=== PATIENT | male | born 1950 | race Caucasian/White ===

== ENCOUNTER → 2017-11-05 08:50 | Outpatient (CLI) | payer OTHER, SELFPAY ==
--- NOTE | 2017-11-05 08:53 | XR_ITS ---
XR foot wt bearing RT 3V HISTORY: Right foot pain, heel pain ITS.REASON: pain ORDERING PHYSICIAN: Traci Morales DPM PATIENT AGE: 66 years COMPARISON: None FINDINGS: There is mild hallux valgus with osteoarthritis of the first MTP joint and mild hypertrophic change of the distal aspect of the first metatarsal. Flexion deformity involves the second through fifth toes. Osteophyte formation noted along the dorsal distal aspect of the first metatarsal. The calcaneus has an unremarkable appearance. No evidence of pes planus. IMPRESSION: Hallux valgus with bunion formation and osteoarthritis of the first MTP joint with posterior spurring of the distal aspect of the first metatarsal
--- NOTE | 2017-11-05 08:53 | XR_ITS ---
XR foot wt bearing LT 3V HISTORY: Left heel pain ITS.REASON: pain ORDERING PHYSICIAN: Traci Morales DPM PATIENT AGE: 66 years COMPARISON: None FINDINGS: Mild hallux valgus with mild osteoarthritic change of the first metatarsophalangeal joint with hypertrophic change of the distal aspect of the first metatarsal. No evidence of pes planus. There is a small calcaneal spur at 5 mm. IMPRESSION: Mild hallux valgus with osteoarthritis of the first metatarsophalangeal joint and bunion formation Small calcaneal spur
== END ==
PROVIDERS: PCP Family Medicine; Visit Provider Podiatrist
DX: M79.673 Pain in unspecified foot (principal)
CPT/HCPCS: 73630

== ENCOUNTER → 2018-02-11 10:47 | Outpatient (CLI) | payer MEDICARE, OTHER, SELFPAY ==
--- NOTE | 2018-02-11 10:58 | XR_ITS ---
XR chest 2V HISTORY: ITS.REASON: URI, COUGH, TOBACCO USE ORDERING PHYSICIAN: Leticia Miles PATIENT AGE: 67 years COMPARISON: None FINDINGS: The cardiomediastinal silhouette and pulmonary vascularity are within normal limits. The lungs are clear without infiltrates, suspicious nodules, or pleural effusions. No acute bony abnormalities. There may be an old left seventh rib fracture IMPRESSION: No acute finding
== END ==
PROVIDERS: PCP Nurse Practitioner Family; Visit Provider Nurse Practitioner Family
DX: J06.9 Acute upper respiratory infection, unspecified (principal); R05 Cough; Z72.0 Tobacco use
CPT/HCPCS: 71046

== ENCOUNTER → 2018-03-28 13:34 | Outpatient (CLI) | payer MEDICARE, OTHER, SELFPAY ==
--- NOTE | 2018-03-28 13:42 | CT_ITS ---
CT lung screening EXAM: CT LUNG LOW DOSE WO CONTRAST HISTORY: ITS.REASON: H/O NICOTINE DEPENDENCE,COUGH,SOB ORDERING PHYSICIAN: Vladimir Waters MD PATIENT AGE: 67 years COMPARISON: None TECHNIQUE: The exam was performed on a GE Light Speed [address] scanner using 2.90 mGy CTDI. A low dose helical CT CHEST was performed on a multi-detector scanner. All CT scans at the facility use one or more dose reduction, viz: automated exposure control, ma/kV adjustment per patient size (including targeted exams where dose is matched to indication, i.e. head), or iterative reconstruction technique. The LDCT was performed in a facility that meets the criteria for the screening program. Data regarding this exam was submitted to ACR which is an approved registry. The order for this exam indicates that it came as a result of a lung cancer screening counseling shard decision-making visit that included all the elements required of such a visit including smoking cessation. The radiologist interpreting this exam meets the CMS criteria for the LDCT lung cancer screening program. The exam is reported using the Lung-RADS classification scale and reported to the ACR registry. NOTE: This study was performed for the specific purposes of lung cancer screening and is not an alternative to diagnostic chest CT. RADIATION DOSE: CTDI vol(CT dose Index-volume) = 2.90mG DLP (Dose Length Product) = 104.61 mGcm FINDINGS: Indeterminate or Suspicious Lung Nodules(Category3-4B): None Indeterminate/Non-actionable Nodules(Category2): None Benign nodules(Category1)None LUNG PARENCHYMA Emphysema: Mild centrilobular emphysematous changes Airways disease: Hyperinflation with mild bronchial thickening consistent with obstructive chronic bronchitis Fibrosis: Mild fibrotic change in the lung bases OTHER ANATOMIC REGIONS Lymph Nodes: No enlarged lymph nodes evident. Scattered small nodes are present in the mediastinum and chantell Pleura: Unremarkable Cardiac: Coronary artery calcification OTHER FINDINGS: No other pertinent findings evident IMPRESSION: 1. Lung RADS Category: 1, negative 2. Other findings: COPD/emphysema with coronary artery disease RECOMMENDATIONS: 12 month LDCT follow-up
[2018-03-28 14:55] VITALS: PULSE 64; PULSE 68
== END ==
PROVIDERS: PCP Family Medicine; Visit Provider Family Medicine
DX: Z12.2 Encounter for screening for malignant neoplasm of respiratory organs (principal); Z87.891 Personal history of nicotine dependence; R05 Cough; R06.02 Shortness of breath
CPT/HCPCS: 94060; 94640

== ENCOUNTER → 2019-05-10 07:51 | Outpatient (CLI) | payer MEDICARE, OTHER, SELFPAY ==
--- NOTE | 2019-05-10 07:55 | CT_ITS ---
PROCEDURE: CT LUNG SCREENING CLINICAL INDICATION: HX TOBACCO USE Fifty pack-year smoking history, asymptomatic for lung cancer COMPARISON: LUNGSCREEN CT lung screening from 03/28/2018 TECHNIQUE: The exam was performed on a GE Light Speed [address] scanner using 2.90 mGy CTDI. A low dose helical CT CHEST was performed on a multi-detector scanner. All CT scans at the facility use one or more dose reduction, viz: automated exposure control, ma/kV adjustment per patient size (including targeted exams where dose is matched to indication, i.e. head), or iterative reconstruction technique. The LDCT was performed in a facility that meets the criteria for the screening program. Data regarding this exam was submitted to ACR which is an approved registry. The order for this exam indicates that it came as a result of a lung cancer screening counseling shard decision-making visit that included all the elements required of such a visit including smoking cessation. The radiologist interpreting this exam meets the CMS criteria for the LDCT lung cancer screening program. The exam is reported using the Lung-RADS classification scale and reported to the ACR registry. NOTE: This study was performed for the specific purposes of lung cancer screening and is not an alternative to diagnostic chest CT. RADIATION DOSE: CTDI vol(CT dose Index-volume) = 2.90mG DLP (Dose Length Product) = 103.94 mGcm FINDINGS: There are few small nodular opacities in the right upper lobe at 2-3 mm not significantly changed. No suspicious nodules are evident. There are changes of COPD. OTHER FINDINGS: Coronary artery calcifications IMPRESSION: Lung rads category 2 benign findings Recommend 12 month LDCT follow-up Dictated by: Cornel Joiner MD 05/13/2019 14:28 Electronically signed by Cornel Joiner MD in [place] 05/13/2019 14:28
--- NOTE | 2019-05-10 08:30 | US_ITS ---
PROCEDURE: US AORTA CLINICAL INDICATION: AAA SCREENING, HX TOBACCO USE COMPARISON: No exams were available for comparison FINDINGS: No evidence of abdominal aortic aneurysm. Proximal common iliacs have an unremarkable appearance. IMPRESSION: Negative for abdominal aortic aneurysm Dictated by: Cornel Joiner MD 05/10/2019 17:16 Electronically signed by Cornel Joiner MD in [place] 05/10/2019 17:16
== END ==
PROVIDERS: PCP Family Medicine; Visit Provider Family Medicine
DX: Z87.891 Personal history of nicotine dependence (principal); Z12.2 Encounter for screening for malignant neoplasm of respiratory organs; I71.4 Abdominal aortic aneurysm, without rupture
CPT/HCPCS: 76770

== ENCOUNTER 2020-03-01 19:41 | Emergency (ER) | payer MEDICARE, OTHER, SELFPAY ==
[2020-03-01 19:45] VITALS: BP 127/77; PULSE 89; RESP 14; TEMP 36.7; O2SAT 97; BMI 34.9
--- NOTE | 2020-03-01 19:52 | HMH.EDUTC ---
[facility] [place]: Laceration of hand Qualifiers: Encounter type: initial encounter Foreign body presence: without foreign body Laterality: left Qualified Code(s): S61.412A - Laceration without foreign body of left hand, initial encounter Disposition: Home, Self-Care Condition on Discharge: Good Instructions: DI for Laceration Repair -- Simple Additional Instructions: Keep clean and dry. Have sutures removed in 7-10 days. Referrals: Vladimir Waters MD [Primary Care Provider] - Time of Disposition: 20:26 Medical Decision Making - Oswaldo Inquiry Pt receiving controlled substance: No Vital Signs: 03/01/20 19:45 Temperature 98.0 F Temperature Source Oral Pulse Rate [Right Brachial] 89 Respiratory Rate 14 Blood Pressure [Right Arm] 127/77 Blood Pressure Mean [Right Arm] 93 Blood Pressure Source [Right Arm] Automatic Cuff Blood Pressure Position [Right Arm] Sitting 02 Sat by Pulse Oximetry 97 Oxygen Delivery Method Room Air [facility] [place] - General Stated complaint: ao 03/01@1915 lac l hand middle finger Time Seen by Provider: 03/01/20 19:53 - History of Present Illness Provider Complaint: 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 Unknown last tetanus. Onset (ago): hour(s) (1) Location: left, upper extremity Relieving factors: none Exacerbating factors: none Associated symptoms: denies other symptoms Treatments prior to arrival: none - Related Data Home Medications Medication Instructions Recorded Confirmed Fenofibrate Nanocrystallized 145 mg PO DAILY 06/23/17 02/15/18 [Fenofibrate] Simvastatin 20 mg PO DAILY 06/23/17 02/15/18 Valsartan/Hydrochlorothiazide 1 each PO DAILY 06/23/17 02/15/18 [Valsartan-Hctz 320-12.5 mg Tab] albuterol sulfate 90 mcg/actuation INHALATION 25 Days #18 g 02/15/18 02/15/18 aerosol inhaler Previous Rx's Medication Instructions Recorded meloxicam 7.5 mg tablet 7.5 mg PO ONCE #30 tab 11/09/17 urea 40 % topical cream 1 applic TOPICAL BID #60 applic 11/09/17 Allergies Allergy/AdvReac Type Severity Reaction Status Date / Time No Known Allergies Allergy Verified 02/15/18 09:35 [facility] History - Hepatitis A Screen Attestation statement:: This patient has been screened for Hepatitis A risk factors. I have reviewed the patient's past medical history: Yes Medical History: Reports:: Hyperlipidemia, Hypertension Denies:: Cancer, Diabetes Mellitus Type 1, Diabetes Mellitus Type 2, Internal Pacemaker, MRSA, Seizures Other Medical History: Reports: Other. Denies: Blood Transfusion Reaction Laterality Cases: Bilateral: Tonsillectomy Other Surgeries: Yes: Colonoscopy, Other (lesion removal). No: Pacemaker Amputation: No Comment: Detached Retina - Social History Smoking Status: Former smoker Tobacco Type: cigarettes Alcohol Intake: current Alcohol Intake Frequency:: 3 or more drinks per day Substance Use Type: denies use Occupational Status: unemployed Housing: house Household Members: spouse Family Hx:: Cancer, Heart Attack, Hyperlipidemia, Hypertension ROS Obtained: Yes All systems reviewed & no additional complaints - Integumentary/Breasts Skin/Breast: Reports as per HPI Physical Exam - General General appearance: alert, in no apparent distress - Head Head exam: normocephalic - Respiratory Respiratory exam: Present: normal lung sounds bilaterally - Cardiovascular Cardiovascular exam: Present: regular rate, normal rhythm - Expanded Upper Extremity Exam Left Hand exam: Present: laceration - Neurological Exam Neurological exam: Present: alert, oriented X3 - Psychiatric Psychiatric exam: Present: normal affect, normal mood - Skin Skin exam: Present: warm, dry, other (laceration left middle finger, palmar tip) Procedures - Laceration Laceration 1 Site: finger Side (If applicable): left Size (cm): 1.0 Description: linear Depth: simple, single layer Local Anesthetic: lidocaine 1% Am
--- NOTE | 2020-03-01 20:25 | PC.NURSE ---
TDAP GIVEN AT THIS TIME IN LEFT DELTOID. LOT #[id number] EXP. 11/30/21
[2020-03-01 20:32] VITALS: BP 127/77; PULSE 89; RESP 14; TEMP 36.7; O2SAT 97
== END 2020-03-01 20:35 | disposition home or self-care (01) ==
PROVIDERS: Emergency Provider Physician Assistant; PCP Family Medicine
DX: S61.213A Laceration without foreign body of left middle finger without damage to nail, initial encounter (principal); W29.1XXA Contact with electric knife, initial encounter; Y92.019 Unspecified place in single-family (private) house as the place of occurrence of the external cause; E78.5 Hyperlipidemia, unspecified; I10 Essential (primary) hypertension; Z23 Encounter for immunization; Z87.891 Personal history of nicotine dependence; Z79.899 Other long term (current) drug therapy
CPT/HCPCS: 12001; G0463; 90471; 99201

== ENCOUNTER → 2021-02-03 08:41 | Outpatient (CLI) | payer MEDICARE, OTHER, SELFPAY | PROVIDERS: PCP Family Medicine; Visit Provider Nurse Practitioner | DX: U07.1 COVID-19 (principal) | CPT/HCPCS: C9803; U0003; U0005 ==

== ENCOUNTER → 2022-12-01 13:09 | Outpatient (POV) | payer MEDICARE, OTHER, SELFPAY | PROVIDERS: Visit Provider Dermatology | DX: Z00.00 Encounter for general adult medical examination without abnormal findings (principal) ==

== ENCOUNTER 2023-12-09 07:20 | Outpatient (CLI) | payer MEDICARE, OTHER, SELFPAY ==
--- NOTE | 2023-12-09 07:27 | CT_ITS ---
FINAL REPORT CLINICAL HISTORY: SCREENING FORMER SMOKER QUIT 8 YEARS AGO SMOKED 2 PPD X 50 YEARS COMPARISON: 05/10/2019 FINDINGS: CTDI vol (mGy): 2.90 DLP: 106.[address] images of the chest were obtained using the low-dose protocol for screening. There is no evidence of mediastinal or hilar mass or adenopathy. No axillary mass or adenopathy is identified. On the lung window images, there are a few tiny nodules in the upper lobes, stable from prior exam consistent with granulomas. No suspicious mass or nodule is identified. IMPRESSION: Lung RADS category 2. Recommend 12 month followup low-dose CT for further evaluation. Reviewed, Interpreted and Dictated by Leonard Tyler MD Transcribed by Celestina Whyte Authenticated and [facility]
== END 2023-12-09 23:59 | disposition home or self-care (01) ==
LOC: RAD 07:21
PROVIDERS: PCP Family Medicine; Visit Provider Family Medicine
DX: Z87.891 Personal history of nicotine dependence (principal); Z12.2 Encounter for screening for malignant neoplasm of respiratory organs
CPT/HCPCS: 71271

== ENCOUNTER 2025-01-12 10:56 | Outpatient (CLI) | payer MEDICARE, OTHER, SELFPAY ==
--- OUTSIDE RECORDS SUMMARY | 2024-12-25 09:00 | XMS_ITS | Encounter Summary ---
Author Organization [facility] Address [address] [place] [address] Care Team Providers Care Mechanical Door Repairer Name Role Phone Vladimir Waters MD Primary Care Provider + Reason for Referral * MRI/CAT/PET Scan (Routine) - Authorized Specialty Diagnoses / Procedures Referred By Contac t Referred To Contact Diagnoses Personal history of nicotine dependence Procedures CT Chest Low Dose Baseline/Annual Screening WO Vladimir Waters MD [address] [facility] [place] [address] Phone: tel: fax: [facility] [address] [place] [address] [place] [address] Phone: tel: fax: Referral ID Status Reason Start Date Expiration Date V isits Requested Visits Authorized [id number] Authorized 12/25/2024 03/26/2026 1 1 Reason for Visit * Reason Comments Diabetes Encounter Details Date Type Department Care Team (Late Contact Info) Description 12/25/2024 9:00 AM EDT Office Visit [facility] [address] [facility] [place] [address] Vladimir Waters MD [address] [facility] [place] [address] Type 2 diabetes mellitus without complication, without long-term current use of insulin (Primary Dx); Essential hypertension; Personal history of nicotine dependence; Need for immunization against influenza; Obstructive sleep apnea Social History Tobacco Use Types Packs/Day Years Used Date Smoking Tobacco: Former Cigarettes 1 50 1 - 02/29/2016 Smokeless Tobacco: Never Tobacco Cessation:Counseling Given: Not Answered Alcohol Use Standard Drinks/Week Comments Yes 3 (1 standard drink = 0.6 oz pur e alcohol) PHQ-2 Answer Date Recorded Retired PHQ-9: Brief Depression Severity Measure Score 0 05/11/2022 PHQ-2 Answer Date Recorded Patient Health Questionnaire-2 Score 0 05/15/2024 Sex and Gender Information Value Date Recorded Sex Assigned at Male 05/08/2024 6:04 PM EST Legal Sex Male 1:47 PM EDT Gender Identity Not on file Sexual Orientation Not on file documented as of this encounter Last Filed Vital Signs Vital Sign Reading Time Taken Comments Blood Pressure 130/70 12/25/2024 8:56 AM EDT Pulse 70 12/25/2024 8:56 AM EDT Temperature 36.4 C (97.5 F) 12/25/2024 8:56 AM EDT Respiratory Rate 20 12/25/2024 8:56 AM EDT Oxygen Saturation 98% 12/25/2024 8:56 AM EDT Inhaled Oxygen Concentration - - Weight 109 kg (240 lb) 12/25/2024 8:56 AM EDT Height - - Body Mass Index 37.03 05/15/2024 7:59 AM EST documented in this encounter Progress Notes * Vladimir Waters MD - 12/25/2024 9:00 AM EDT Chief Complaint Patient presents with Diabetes Subjective Prieto Barker is a 74 y.o. who presents for chronic care. Weight is down 12 pounds. He has reduced consumption of cookies, ice cream, alcohol in an effort to improve his blood sugar. Blood pressure is not monitored. Patient is due for lung cancer screening. He continues CPAP for SANJAY and supplies wererecently refilled. Answers submitted by the patient for this visit: Office Visit on 12/25/2024 9:00 AM with Vladimir Waters Diabetes Questionnaire (Submitted on 12/18/2024) Chief Complaint: Diabetes problem Diabetes type: type 1 MedicAlert ID: No foot paresthesias: No foot ulcerations: No headaches: No sweats: No Current diet: generally healthy Meal planning: none Exercise: intermittently Eye exam current: Yes Sees sales administration manager: No The following portions of the patient's history were reviewed and updated as appropriate: allergies, current medications, past family history, past medical history, past social history, past surgicalhistory, and problem list. Review of Systems Objective Vital Signs: BP 130/70 Pulse 70 Temp 97.5 ??F (36.4 ??C) Resp 20 Wt 109 kg (240 lb) SpO2 98% BMI 37.03 kg/m?? Physical Exam Vitals reviewed. Constitutional: Appearance: Normal appearance. Cardiovascular: Rate and Rhythm: Normal rate and regular rhythm. Pulses: Normal pulses. Heart sounds: Normal heart sounds. Pulmonary: Effort: Pulmonary effort is normal. Breath sounds: Normal breath sounds. Neurological: Mental Status: He is alert. Result Review The following data was reviewed by: Vladimir Waters MD on 12/25/2024: Lab 12/25/24 0906 HEMOGLOBIN A1C 6.3* Assessment and Plan Diagnoses and all orders for this visit: 1. Type 2 diabetes mellitus without complication, without long-term current use of insulin (Primary) Comments: Diabetes is now controlled. Continue metformin 500 mg twice daily. Reassess in 5 to 6 months Orders: - POC Glycosylated Hemoglobin (Hb A1C) - metFORMIN (GLUCOPHAGE) 500 MG tablet; Take 1 tablet by mouth 2 (Two) Times a Day With Meals. Dispense: 180 tablet; Refill: 1 2. Essential hypertension Comments: Pretension is controlled. Continue losartan, HCTZ. Combine med at next visit 3. Personal history of nicotine dependence Comments: Continue with LDCT annually Orders: - CT Chest Low Dose Baseline/Annual Screening WO; Future 4. Need for immunization against influenza - Fluzone High-Dose 65+yrs ([id number]) 5. Obstructive sleep apnea Comments: Stable. CPAP supplies refilled last week Follow Up Return in about 5 months (around 05/25/2025) for Medicare Wellness. Patient was given instructions and counseling regarding his condition or for health maintenance advice. Please see specific information pulled into the AVS if appropriate. documented in this encounter Plan of Treatment Upcoming Encounters Date Type Department Care Team (Late st Contact Info) Description 05/21/2025 9:15 AM EDT Office Visit [facility] [address] [place] [address] Vladimir Waters MD [address] [place] [address] Scheduled Orders Name Type Priority Associated Diagnoses Orde r Schedule CT Chest Low Dose Baseline/Annual Screening WO Imaging Routine Personal history of nicotine dependence Expected: 12/26/2024, Expires: 03/27/2026 documented as of this encounter Procedures Procedure Name Priority Date/Time Associated Diagnosis Comments POCT GLYCOSYLATED HEMOGLOBIN (HGB A1C) Routine 12/25/2024 9:06 AM EDT Type 2 diabetes mellitus without complication, without long-term current use of insulin documented in this encounter Results * (ABNORMAL) POC Glycosylated Hemoglobin (Hb A1C) (12/25/2024 9:06 AM EDT) Hemoglobin A1C 6.3(A) 4.5 - 5.7 % [facility] Lot Number [id number] [facility] Expiration Date 07/06/2026 [facility] Blood 12/25/2024 9:06 AM EDT us Vladimir Waters MD POINT OF CARE TEST ORDER VALERY Final Result [facility]
[address] [place] [address], documented in this encounter Visit Diagnoses Diagnosis Type 2 diabetes mellitus without complication, without long-term current use of insulin- Primary Essential hypertension Unspecified essential hypertension Personal history of nicotine dependence Need for immunization against influenza Need for prophylactic vaccination and inoculation against influenza Obstructive sleep apnea Obstructive sleep apnea (adult) (pediatric) documented in this encounter Care Teams Mechanical Door Repairer Relationship Specialty Start Date End Date Vladimir Waters MD [address] [facility] [place] [address] PCP - General Family Medicine 08/04/21 documented as of this encounter
--- NOTE | 2025-01-12 10:59 | CT_ITS ---
FINAL REPORT TECHNIQUE: Axial images were obtained from the lung apex to the mid abdomen by computed tomography. This study was performed with techniques to keep radiation doses as low as reasonably achievable (ALARA). Individualized dose reduction techniques using automated exposure control or adjustment of mA and/or kV according to the patient's size were employed. CLINICAL HISTORY: SCREENING former smoker quit 9 years ago, 2ppd x50 years FINDINGS: CHEST CT LOW DOSE CTDI vol (mGy): 2.90 DLP (mGy-cm): 99.25 There is no axillary adenopathy. There is no hilar or mediastinal adenopathy. The heart is normal in size. There is no pericardial or pleural effusion. Lung window images demonstrate no suspicious infiltrate or nodule. Limited images of the upper abdomen are unremarkable. IMPRESSION: Lung RADS category 1. Recommend 12 month follow-up low-dose chest CT. Reviewed, Interpreted and Dictated by Twin Barrera MD Transcribed by Justina Pierce Authenticated and . [facility]
--- OUTSIDE RECORDS SUMMARY | 2025-01-12 11:04 | XMS_ITS | Encounter Summary ---
[facility] Address [address] [place] [address] Care Team Providers Care Manufacturing Production Technician Name Role Phone Vladimir Waters MD Primary Care Provider + Reason for Visit * Reason Onset Date Comments Med Refill 04/29/2022 Encounter Details Date Type Department Care Team (Late st Contact Info) Description 04/29/2022 Refill [facility] [address] [place] [address] Vladimir Waters MD [address] [facility] [address] Social History Tobacco Use Types Packs/Day Years Used Date Smoking Tobacco: Former Cigarettes Q uit: 2017 Smokeless Tobacco: Never PHQ-2 Answer Date Recorded Retired PHQ-9: Brief Depression Severity Measure Score 0 08/04/2021 Sex and Gender Information Value Date Recorded Sex Assigned at Male 05/08/2024 6:04 PM EST Legal Sex Male 1:47 PM EDT Gender Identity Not on file Sexual Orientation Not on file documented as of this encounter Plan of Treatment Upcoming Encounters Date Type Department Care Team (Late Contact Info) Description 05/21/2025 9:15 AM EDT Office Visit [facility] [address] [place] [address] Vladimir Waters MD [address] [place] [address] documented as of this encounter Visit Diagnoses Not on filedocumented in this encounter Care Teams Manufacturing Production Technician Relationship Specialty Start Date End Date Vladimir Waters MD [address] [place] [address] PCP - General Family Medicine 08/04/21 documented as of this encounter
--- OUTSIDE RECORDS SUMMARY | 2025-01-12 11:04 | XMS_ITS | Encounter Summary ---
Author Organization [facility] Address [address] [place] [address] Care Team Providers Care Employee Representative Name Role Phone Vladimir Waters MD Primary Care Provider + Encounter Details Date Type Department Care Team (Latest Contact Info) Description 12/25/2024 Travel Social History Tobacco Use Types Packs/Day Years Used Date Smoking Tobacco: Former Cigarettes 1 50 1 - 02/29/2016 Smokeless Tobacco: Never Alcohol Use Standard Drinks/Week Comments Yes 3 [...] Description 05/21/2025 9:15 AM EDT Office Visit [facility] [address] [facility] [address] Vladimir Waters MD [address] [place] [address] documented as of this encounter Visit Diagnoses Not on filedocumented in this encounter Care Teams Employee Representative Relationship Specialty Start Date End Date Vladimir Waters MD [address] [place] [address] PCP - General Family Medicine 08/04/21 documented as of this encounter
--- OUTSIDE RECORDS SUMMARY | 2025-01-12 11:04 | XMS_ITS | Clinical Summary ---
Author Organization [facility] Address [address] [place] [address] Care Team Providers Care Developmental Education Instructor Name Role Phone Vladimir Waters MD Primary Care Provider + Allergies No known active allergies Medications gemfibrozil (LOPID) 600 MG tabletIndications: Mixed hyperlipidemia Take 1 tablet by mouth 2 (Two) Times a Day. 180 tablet 3 05/16/19 25 Active hydroCHLOROthiazid e 25 MG tabletIndications: Essential hypertension Take 1 tablet by mouth Daily. 90 tablet 3 05/16/19 25 Active losartan (COZAAR) 100 MG tabletIndications: Essential hypertension Take 1 tablet by mouth Daily. 90 tablet 3 05/16/19 25 Active simvastatin (ZOCOR) 20 MG tabletIndications: Mixed hyperlipidemia Take 1 tablet by mouth Every Evening. 90 tablet 3 05/16/19 25 Active metFORMIN (GLUCOPHAGE) 500 MG tabletIndications: Type 2 diabetes mellitus without complication, without long-term current use of insulin Take 1 tablet by mouth 2 (Two) Times a Day With Meals. 180 tablet 1 12/26/19 25 Active dapagliflozin Propanediol 10 MG tabletIndications: Type 2 diabetes mellitus with hyperglycemia, without long-term current use of insulin Take 10 mg by mouth Daily. 30 tablet 2 05/17/19 25 025 Discontinued metFORMIN (GLUCOPHAGE) 500 MG tabletIndications: Type 2 diabetes mellitus with hyperglycemia, without long-term current use of insulin Take 1 tablet by mouth 2 (Two) Times a Day With Meals. 180 tablet 12/12/19 25 025 Discontinued(Re order) Active Problems Problem Noted Date Diagnosed Date Type 2 diabetes mellitus with hyperglycemia 08/13 Essential hypertension 08/04/2021 Assessment & Plan (05/15/2024 8:29 AM EST): Orders: hydroCHLOROthiazide 25 MG tablet; Take 1 tablet by mouth Daily. losartan (COZAAR) 100 MG tablet; Take 1 tablet by mouth Daily. CBC & Differential Comprehensive Metabolic Panel Assessment & Plan (05/11/2022 12:49 PM EST): Hypertension is Stable. Continue current treatment regimen. Dietary sodium restriction. Blood pressure will be reassessed at the next regular appointment. Mixed hyperlipidemia 08/04/2021 Assessment & Plan (05/15/2024 8:29 AM EST): Orders: gemfibrozil (LOPID) 600 MG tablet; Take 1 tablet by mouth 2 (Two) Times a Day. simvastatin (ZOCOR) 20 MG tablet; Take 1 tablet by mouth Every Evening. Comprehensive Metabolic Panel Lipid Panel Assessment & Plan (05/11/2022 12:49 PM EST): Lipid abnormalities are improving with treatment. Pharmacotherapy as ordered. Lipids will be reassessed in 1 year. Obstructive sleep apnea 08/04/2021 Assessment & Plan (05/15/2024 8:29 AM EST): Assessment & Plan (05/11/2022 12:53 PM EST): Stable. Continue CPAP Class 2 severe obesity due t o excess calories with serious comorbidity and body mass index (BMI) of 36.0 to 36.9 in adult 08/04/2021 Encounters Date Type Department Care Team Description 12/25/2024 9:00 AM EDT Office Visit [facility] [address] [place] [address] Vladimir Waters MD Type 2 diabetes mellitus without complication, without long-term current use of insulin (Primary Dx); Essential hypertension; Personal history of nicotine dependence; Need for immunization against influenza; Obstructive sleep apnea 12/25/2024 Travel 12/10/2024 Refill [facility] [address] [place], [place] [address] Vladimir Waters MD Type 2 diabetes mellitus with hyperglycemia, without long-term current use of insulin 11/21/2024 Telephone [facility] [address] [place] [address] Vladimir Waters MD PAPERWORK REQUEST 10/24/2024 Refill [facility] [address] [place], [place] [address] Vladimir Wtaers MD Type 2 diabetes mellitus with hyperglycemia, without long-term current use of insulin from Last 3 Months Immunizations Immunization Administration Dates Next Due COVID-19 (MODERNA) 12YRS+ (SPIKEVAX) 12/11/2022 COVID-19 (MODERNA) 1st,2nd,3 rd Dose Monovalent 06/25/2021,01/29/2021,06/12/2020,2020 COVID-19 (MODERNA) BIVALENT 12+YRS 01/07/2022 COVID-19 (UNSPECIFIED) 01/27/2024 FLUAD TRI 65YR+ 12/29/2019 Fluzone High-Dose 65+YRS 12/25/2024,12/11/2022 Fluzone High-Dose 65+yrs 01/27/2024,11/05/2021 Shingrix 07/18/2024,05/15/2024 Family History Medical History Relation Name Comments No Known Problems Father Cancer Mother Sangeetha colon Relation Name Status Comments Father Mother Sangeetha Social History Tobacco Use Types Packs/Day Years [...] on file Sexual Orientation Not on file Last Filed Vital Signs Vital Sign Reading Time Taken Comments Blood Pressure 130/70 12/25/2024 8:56 AM EDT Pulse 70 12/25/2024 8:56 AM EDT Temperature 36.4 C (97.5 F) 12/25/2024 8:56 AM EDT Respiratory Rate 20 12/25/2024 8:56 AM EDT Oxygen Saturation 98% 12/25/2024 8:56 AM EDT Inhaled Oxygen Concentration - - Weight 109 kg (240 lb) 12/25/2024 8:56 AM EDT Height 171.5 cm (5' 7.5 ) 05/15/2024 7:59 AM EST Body Mass Index 37.03 05/15/2024 7:59 AM EST Plan of Treatment Upcoming Encounters Date Type Department Care Team (Late st Contact Info) Description 05/21/2025 9:15 AM EDT Office Visit [facility] [address] [facility] [place] [address] Vladimir Waters MD [address] [facility] [place] [address] Health Maintenance Due Date Last Done Comments DIABETIC FOOT EXAM 1962 URINE MICROALBUMIN-CREATININ E RATIO (uACR) 1962 Pneumococcal Vaccine 50+ (1 of 2 - PCV) 12/16/1971 TDAP/TD VACCINES (1 - Tdap) 12/16/1971 COLOGUARD 1997 COLON CANCER SCREENING 5 YEA R SIGMOIDOSCOPY 1997 CT COLONOGRAPHY 1997 FECAL OCCULT BLOOD TEST 1997 FIT Testing (1 year) 1997 HEPATITIS C SCREENING 08/04/2021 DIABETIC EYE EXAM 01/01/2022 01/01/2021, , 01/09/2019 COVID-19 Vaccine (8 - Modern a risk season) 2024 01/27/2024, 12/11/2022, 01/07/2022, Additional history exists LUNG CANCER SCREENING 12/08/2024 12/09/2023 ANNUAL WELLNESS VISIT 05/15/2025 05/15/2024 , 05/13/2023, 05/11/2022, Additional history exists LIPID PANEL 05/15/2025 05/15/2024, 04/16, 05/11/2022, Additional history exists HEMOGLOBIN A1C 06/25/2025 12/25/2024, 03/0 05/2024, 05/05/2021, Additional history exists COLONOSCOPY 08/06/2030 08/06/2020, 07/14, 08/06/2020 COLORECTAL CANCER SCREENING 08/06/2030 AAA SCREEN ONCE Completed 05/10/2019, 04/16, 02/26/2014 ZOSTER VACCINE Completed 07/18/2024, 05/15/2024 INFLUENZA VACCINE Completed 12/25/2024, , 01/27/2024, Additional history exists Procedures Procedure Name Priority Date/Time Associated Diagnosis Comments POCT GLYCOSYLATED HEMOGLOBIN (HGB A1C) Routine 12/25/2024 9:06 AM EDT Type 2 diabetes mellitus without complication, without long-term current use of insulin LIPID PANEL Routine 05/15/2024 8:32 AM EST Mixed hyperlipidemia CT CHEST LOW DOSE WO CANCER SCREENING Routine 12/09/2023 Screening for lung cancer Personal history of nicotine dependence SCANNED - COLONOSCOPY 08/06/2020 CT ABDOMEN PELVIS W CONTRAST Routine 02/26/2014 10:36 AM EST from Last 3 Months or Most Recently Relevant to Health Maintenance Results * (ABNORMAL) POC Glycosylated Hemoglobin (Hb A1C) (12/25/2024 9:06 AM EDT) Hemoglobin A1C 6.3(A) 4.5 - 5.7 % [facility] Lot Number [id number] [facility] Expiration Date 07/06/2026 [facility] Blood 12/25/2024 9:06 AM EDT Vladimir Waters MD POINT OF CARE TEST ORDER VALERY Final Result [facility]
[address] [place] [address], * (ABNORMAL) Lipid Panel (05/15/2024 8:32 AM EST) [facility] Total Cholesterol 156 0 - 200 mg/dL [facility] Comment: Cholesterol Reference Ranges (U.S. Department of Health and Human Services ATP III Classifications) Desirable <200 mg/dL Borderline High 200-239 mg/dL High Risk >240 mg/dL Triglyceride Reference Ranges (U.S. Department of Health and Human Services ATP III Classifications) Normal <150 mg/dL Borderline High 150-199 mg/dL High 200-499 mg/dL Very High >500 mg/dL HDL Reference Ranges (U.S. Department of Health and Human Services ATP III Classifications) Low <40 mg/dl (major risk factor for CHD) High >60 mg/dl ('negative' risk factor for CHD) LDL Reference Ranges (U.S. Department of Health and Human Services ATP III Classifications) Optimal <100 mg/dL Near Optimal 100-129 mg/dL Borderline High 130-159 mg/dL High 160-189 mg/dL Very High >189 mg/dL LDL is calculated using the NIH LDL-C calculation. Triglycerides 299(H) 0 - 150 mg/dL [facility] HDL Cholesterol 34(L) 40 - 60 mg/dL [facility] VLDL Cholesterol Nikita 48(H) 5 - 40 mg/dL [facility] LDL Chol Calc (NIH) 74 0 - 100 mg/dL [facility] Blood 05/15/2024 8:32 AM EST 05/15/2024 Narrative [facility]) - 05/16/2024 3:07 AM EST Performed at: 01 - [place] [address] [address] [place], [place] [id number] Snapper On: Jesse Ferrell MD, Phone: [phone] Patient Fasting: Y Vladimir Waters MD LAB BLOOD ORDERABLES Fin al Result [facility]) [address] [place] [address], [place] [phone] [facility] [address] [place] [address], [place] [phone] * CT Chest Low Dose Cancer Screening WO (12/09/2023) Anatomical Region Laterality Modality Chest Computed Tomogra phy us Vladimir Waters MD IMG CT ORDERABLES Final Result * SCANNED - COLONOSCOPY (08/06/2020) us Vladimir Waters MD CHART REVIEW TABS Fin al Result * CT ABDOMEN PELVIS WITH CONTRAST (02/26/2014 10:36 AM EST) Anatomical Region Laterality Modality Body N/A Computed Tomogra phy 02/26/2014 10:3 6 AM EST Narrative 02/26/2014 1:36 PM EST EXAMINATION: CT ABDOMEN AND PELVIS W CONTRAST- INDICATION: PRE OP, colon polyp, family history of malignancy of the colon TECHNIQUE: Creatinine 1.5, 90 mL of Optiray was administered for contrast enhancement. The radiation dose reduction device was turned on for each scan per the ALARA (As Low as Reasonably Achievable) protocol. COMPARISON: NONE FINDINGS: 1. Homogeneous fatty liver is noted. Focal mass is not identified within the liver otherwise. The spleen is unremarkable. The adrenal glands are normal. Pancreas is negative for mass, cyst or stranding. Gallbladder is negative for abnormal radiodensities. 2. A small 1 cm cyst projects from the right kidney. A 2 cm cyst is seen in the upper pole of the right kidney. Otherwise, solid renal mass, renal stone or renal obstruction is not currently identified. 3. Periaortic space, retroperitoneum and mesentery are unremarkable. There is no mesenteric or omental caking. There is diverticulosis of the colon without diverticulitis. The images into the lower abdomen and pelvis are negative for dominant mass or adenopathy. Prostate calculi are noted. IMPRESSION- 1. Homogeneous fatty liver. Minimal renal cysts. Prostatic calculi, postinflammatory. Diverticulosis of the colon without diverticulitis. 2. Otherwise, there is no evidence of visceral tumor, bulky adenopathy or active metastatic disease. E: 02/26/2014 Reading RadiologistTalia QUILES Releasing Samantha QUILES Released Date Time- 02/26/14 1537 Tutorial Laboratory Supervisor- Claudine Procedure Note Ned Pastor MD - 12/05/2014 EXAMINATION: CT ABDOMEN AND PELVIS W CONTRAST- INDICATION: PRE OP, colon polyp, family history of malignancy of the colon TECHNIQUE: Creatinine 1.5, 90 mL of Optiray was administered for contrast enhancement. The radiation dose reduction device was turned on for each scan per the ALARA (As Low as Reasonably Achievable) protocol. COMPARISON: NONE FINDINGS: 1. Homogeneous fatty liver is noted. Focal mass is not identified within the liver otherwise. The spleen is unremarkable. The adrenal glands are normal. Pancreas is negative for mass, cyst or stranding. Gallbladder is negative for abnormal radiodensities. 2. A small 1 cm cyst projects from the right kidney. A 2 cm cyst is seen in the upper pole of the right kidney. Otherwise, solid renal mass, renal stone or renal obstruction is not currently identified. 3. Periaortic space, retroperitoneum and mesentery are unremarkable. There is no mesenteric or omental caking. There is diverticulosis of the colon without diverticulitis. The images into the lower abdomen and pelvis are negative for dominant mass or adenopathy. Prostate calculi are noted. IMPRESSION- 1. Homogeneous fatty liver. Minimal renal cysts. Prostatic calculi, postinflammatory. Diverticulosis of the colon without diverticulitis. 2. Otherwise, there is no evidence of visceral tumor, bulky adenopathy or active metastatic disease. E: 02/26/2014 Reading Radiologist- NED QUILES Releasing Radiologist- NED QUILES Released Date Time- 02/26/14 1537 Tutorial Laboratory Supervisor- Claudine Reginald Zazueta MD IMG CT ORDERABLES Final Result from Last 3 Months or Most Recently Relevant to Health Maintenance Insurance [employer] MEDICARE A & B Care Teams Developmental Education Instructor Relationship Specialty Start Date End Date Vladimir Waters MD [facility] [address] PCP - General Family Medicine 08/04/21
--- OUTSIDE RECORDS SUMMARY | 2025-01-12 11:04 | XMS_ITS | Encounter Summary ---
[facility] Address [address] [place] [address] Care Team Providers Care Biofuels Product Manager Name Role Phone Vladimir Waters MD Primary Care Provider + Encounter Details Date Type Department Care Team (Late st Contact Info) Description 06/13/2024 Results Follow-Up [facility] [address] [facility] [place] [address] Ester Jackson LPN Social History Tobacco Use Types Packs/Day Years Used Date Smoking Tobacco: Former Cigarettes 1 50 1 - 02/29/2016 Smokeless Tobacco: Never Alcohol Use Standard Drinks/Week Comments Yes 2 (1 standard drink = 0.6 oz pur [...] Description 05/21/2025 9:15 AM EDT Office Visit [facility] [address] [place] [address] Vladimir Waters MD [address] [facility] [place] [address] documented as of this encounter Visit Diagnoses Not on filedocumented in this encounter Care Teams Biofuels Product Manager Relationship Specialty Start Date End Date Vladimir Waters MD [address] [place] [address] PCP - General Family Medicine 08/04/21 documented as of this encounter
--- OUTSIDE RECORDS SUMMARY | 2025-01-12 11:04 | XMS_ITS | Encounter Summary ---
[facility] Address [address] [place] [address] Care Team Providers Care Tobacco Drier Operator Name Role Phone Vladimir Waters MD Primary Care Provider + Reason for Visit * Reason Onset Date Comments PAPERWORK REQUEST 11/21/2024 Encounter Details Date Type Department Care Team (Late st Contact Info) Description 11/21/2024 Telephone [facility] [address] [place] [address] Vladimir aWters MD [address] [place] [address] PAPERWORK REQUEST Social History Tobacco Use Types Packs/Day Years [...] on file documented as of this encounter Miscellaneous Notes * Telephone Encounter - Lolly Kraus RegSched Rep - 11/21/2024 12:28 PM EDT NOTE HAS BEEN SENT * Telephone Encounter - Carlene Mcintosh RegSched Rep - 11/21/2024 10:59 AM EDT Caller: [facility] Relationship: Best call back number: [phone] What form or medical record are you requesting: MOST RECENT OFFICE NOTE Who is requesting this form or medical record from you: [facility] How would you like to receive the form or medical records (pick-up, mail, fax): FAX If fax, what is the fax number: [phone] Timeframe paperwork needed: MARCUS Additional notes: THEY ARE NEEDING THE MOST RECENT OFFICE NOTE FOR THIS PATIENT FOR HIS CPAP SUPPLIES. THEY RECEIVED THE ORDER THIS MORNING, BUT THE NOTES WERE NOT ATTACHED documented in this encounter Plan of Treatment Upcoming Encounters Date Type Department Care Team (Late st Contact Info) Description 05/21/2025 9:15 AM EDT Office Visit [facility] [address] [place] [phone] Vladimir Waters MD [address] [place] [address] documented as of this encounter Visit Diagnoses Not on filedocumented in this encounter Care Teams Tobacco Drier Operator Relationship Specialty Start Date End Date Vladimir Waters MD [address] [place] [address] PCP - General Family Medicine 08/04/21 documented as of this encounter
--- OUTSIDE RECORDS SUMMARY | 2025-01-12 11:04 | XMS_ITS | Encounter Summary ---
[facility] Address [address] [place] [address] Care Team Providers Care Malware Analyst Name Role Phone Vladimir Waters MD Primary Care Provider + Reason for Visit * Reason Onset Date Comments Med Refill 12/10/2024 Encounter Details Date Type Department Care Team (Late st Contact Info) Description 12/10/2024 Refill [facility] [address] [place] [address] Vladimir Waters MD [address] [place] [address] Type 2 diabetes mellitus with hyperglycemia, without long-term current use of insulin Social History Tobacco Use Types Packs/Day Years [...] Description 05/21/2025 9:15 AM EDT Office Visit [facility] [address] [place] [phone] Vladimir Waters MD [address] [place] [address] documented as of this encounter Visit Diagnoses Diagnosis Type 2 diabetes mellitus with hyperglycemia, without long-term current use of insulin documented in this encounter Care Teams Malware Analyst Relationship Specialty Start Date End Date Vladimir Waters MD [address] [place] [address] PCP - General Family Medicine 08/04/21 documented as of this encounter
== END 2025-01-12 23:59 | disposition home or self-care (01) ==
LOC: RAD 10:57
PROVIDERS: PCP Family Medicine; Visit Provider Family Medicine
DX: Z12.2 Encounter for screening for malignant neoplasm of respiratory organs (principal); Z87.891 Personal history of nicotine dependence
CPT/HCPCS: 71271